=== PATIENT | male | born 1970 | race Caucasian/White ===

== ENCOUNTER 2018-05-13 10:11 | Emergency (ER) | payer OTHER ==
[~2018-05-13] VITALS: Ht 172.7 cm; Wt 158.8 kg
[2018-05-13 10:19] VITALS: BP 165/82
--- NOTE | 2018-05-13 10:29 | NUR ---
PT AMBULATES TO BED 3
--- NOTE | 2018-05-13 10:30 | NUR ---
47Y/M BIB SELF C/O NERVE PAIN 10/ ON RT LEG. PT REPORTS THAT HE TAKES GABAPENTIN 600 MG THIS MORNING BUT IT WAS NOT EFFECTIVE. DENIES N/V/D/FEVER. NO REDNESS OR SWELLING NOTED. BED DOWN; BEDRAIL UP X 1; ER MD AWARE AND NOTIFIED OF PT STATUS. HX; AMPUTATION OF RIGHT LEFT, 5 SURGERIES FOR INFECTION, LEFT TOE AMPUTATION, BACK SURGERY, HTN, DM RX: ASA, ATORVASTATIN, BASAGLAR KWIKPEN U-100 INSULIN, CIPRODEX, FERROUS SULFATE, GABAPENTIN, GLIPIZIDE, HYDRALAZINE, HYDROCHLOROTHIAZIDE, LOSARTAN, METFORMIN, LARON-LOG, ZINC
[2018-05-13] MEDS ORDERED: KETOROLAC 60 MG/2 ML VIAL IM ONE (10:45)
--- NOTE | 2018-05-13 10:48 | NUR ---
RAD AT BEDSIDE
[2018-05-13 11:48] VITALS: BP 123/78
== END 2018-05-13 11:48 | disposition home or self-care (01) ==
LOC: MED 10:11
DX: M79.604 Pain in right leg (principal); Z89.511 Acquired absence of right leg below knee; E11.9 Type 2 diabetes mellitus without complications; I10 Essential (primary) hypertension
CPT/HCPCS: 73562; 82948; 96372; 99284; J1885; Q0092

== ENCOUNTER 2019-01-16 17:05 | Emergency (ER) | payer OTHER ==
[~2019-01-16] VITALS: Ht 203.2 cm; Wt 159.2 kg
[~2019-01-16 17:05] MED LIST: ASCO500T45 PO; ASPI-1718 PO; ATOR20TA PO; FENO145T PO; FERR325E14 PO; GABA300C PO; GLIP10TA3 PO; HYDR-5122 PO; HYDR100T79 PO; INSU100I15 SQ; INSU100I7 SQ; LOSA100T51 PO; METF1000 PO; METO50TE PO; VITD1000 PO
[2019-01-16 17:18] VITALS: BP 152/78
--- NOTE | 2019-01-16 17:23 | NUR ---
Patient ambulated to bed 12. RN evaluating patient at bedside.
--- NOTE | 2019-01-16 18:08 | NUR ---
PT TO ED WITH C/O L EYE REDNESS X THIS MORNING. PER PT "MY SISTER POINTED OUT THIS RED DOT ON MY EYE AND I WANTED TO MAKE SURE THAT ITS OKAY" PT DENIES PAIN. DENIES VISION PROBLEMS. REDNESS NOTED TO L EYE. PT PLACED INTO BED, PENDING MD MAHER.
[2019-01-16 18:50] VITALS: BP 152/78
--- NOTE | 2019-01-16 18:51 | NUR ---
Patient discharged with v/s stable. Written and verbal after care instructions given and explained. Patient alert, oriented and verbalized understanding of instructions. Ambulatory with steady gait. All questions addressed prior to discharge. ID band removed. Patient advised to follow up with PMD. Rx of ERYTROMYCIN, NAPHCON given. Patient educated on indication of medication including possible reaction and side effects. Opportunity to ask questions provided and answered.
== END 2019-01-16 18:51 | disposition home or self-care (01) ==
LOC: MED 17:05
DX: H11.32 Conjunctival hemorrhage, left eye (principal); E11.9 Type 2 diabetes mellitus without complications; I10 Essential (primary) hypertension; Z79.82 Long term (current) use of aspirin; Z79.891 Long term (current) use of opiate analgesic; Z79.4 Long term (current) use of insulin; Z79.899 Other long term (current) drug therapy
CPT/HCPCS: 99283